=== PATIENT | female | born 1940 | race Caucasian/White ===

== ENCOUNTER 2018-06-29 17:07 | Observation (INO) | payer OTHER, MEDICAID, MEDICARE ==
[2018-06-29 18:12] LABS: ADD MAN DIFF? NO
[2018-06-29 18:17] LABS: BASOPHILS % 0.4 % (0.0-2.0); EOSINOPHILS # 0.2 10^3/ul (0.0-0.5); HEMATOCRIT 45.9 % (37.0-47.0); HEMOGLOBIN 14.9 g/dl (12.0-16.0); LYMPHOCYTES # 2.1 10^3/ul (0.8-2.9); LYMPHOCYTES % 23.7 % (15.0-51.0); MEAN CORPUSCULAR HEMOGLOBIN 29.8 pg (29.0-33.0); MEAN CORPUSCULAR HGB CONC 32.5 g/dl (32.0-37.0); MEAN CORPUSCULAR VOLUME 91.8 fl (82.0-101.0); MEAN PLATELET VOLUME 10.6 fl (7.4-10.4); MONOCYTE # 0.8 10^3/ul (0.3-0.9); MONOCYTES % 8.3 % (0.0-11.0); NEUTROPHIL # 5.9 10^3/ul (1.6-7.5); PLATELET COUNT 245 10^3/UL (140-415); RED CELL DISTRIBUTION WIDTH 13.7 % (11.5-14.5)
[2018-06-29] MEDS: ASPIRIN 81 MG TAB PO (18:26)
[2018-06-29] MEDS: NITROGLYCERIN 2% 1 GM OINT PKT TD (18:26)
[2018-06-29] MEDS: NITROGLYCERIN (SL) 0.4 MG TAB SL (18:27)
[2018-06-29 18:45] LABS: ANION GAP 9 (5-13); BLOOD UREA NITROGEN 19 mg/dl (7-20); CALCIUM 9.9 mg/dl (8.4-10.2); CARBON DIOXIDE 29 mmol/L (21-31); CHLORIDE 99 mmol/L (97-110); CREATININE 1.01 mg/dl (0.44-1.00); GLUCOSE 128 mg/dl (70-220); POTASSIUM 4.7 mmol/L (3.5-5.1); SODIUM 137 mmol/L (135-144)
[2018-06-29 18:57] LABS: TROPONIN-I < 0.012 ng/ml (0.000-0.120)
[2018-06-29] MEDS ORDERED: ONDANSETRON 4 MG INJ IV ×2 (19:30→22:00)
[2018-06-29] MEDS: ACETAMINOPHEN 325 MG TAB PO (21:07)
[2018-06-29] MEDS: morphine 4 MG/ML VIAL IV (21:42)
[2018-06-29] MEDS ORDERED: GLUCOSE GEL 15 GRAM TUBE PO ×2 (22:00)
[2018-06-29] MEDS ORDERED: NACL 0.9% 3 ML SYG IV (22:00)
[2018-06-29] MEDS ORDERED: ACETAMINOPHEN 325 MG TAB PO (22:00)
[2018-06-29] MEDS ORDERED: GLUCOSE GEL 15 GRAM TUBE BUCCAL (22:00)
[2018-06-29] MEDS ORDERED: NITROGLYCERIN (SL) 0.4 MG TAB SL (22:00)
[2018-06-29] MEDS ORDERED: morphine 2 MG INJ IV (22:00)
[2018-06-29] MEDS ORDERED: GLUCAGON 1 MG INJ IM (22:00)
[2018-06-29] MEDS ORDERED: HYDROCODONE/APAP (5/325) TAB PO (22:00)
[2018-06-29] MEDS ORDERED: DEXTROSE 50% 50 ML SYRINGE IV ×2 (22:00)
[2018-06-29] MEDS: ATORVASTATIN 80 MG TAB PO (23:00)
[2018-06-29] MEDS: HEPARIN 5,000 UNIT/1 ML VIAL SC (23:04)
[2018-06-30 01:16] LABS: CREATINE KINASE 132 IU/L (23-200)
[2018-06-30 01:28] LABS: CK-MB 1.35 ng/ml (0.0-2.4); TROPONIN-I < 0.012 ng/ml (0.000-0.120)
[2018-06-30] MEDS: ACCU-CHEK XX (02:00)
[2018-06-30] MEDS: HEPARIN 5,000 UNIT/1 ML VIAL SC ×2 (05:34→15:04)
[2018-06-30 06:51] LABS: ADD MAN DIFF? NO
[2018-06-30 06:54] LABS: BASOPHILS % 0.3 % (0.0-2.0); EOSINOPHILS # 0.2 10^3/ul (0.0-0.5); EOSINOPHILS % 1.4 % (0.0-7.0); HEMOGLOBIN 13.6 g/dl (12.0-16.0); LYMPHOCYTES # 1.4 10^3/ul (0.8-2.9); LYMPHOCYTES % 12.4 % (15.0-51.0); MEAN CORPUSCULAR HEMOGLOBIN 29.9 pg (29.0-33.0); MEAN CORPUSCULAR HGB CONC 32.4 g/dl (32.0-37.0); MEAN CORPUSCULAR VOLUME 92.3 fl (82.0-101.0); MEAN PLATELET VOLUME 11.3 fl (7.4-10.4); MONOCYTE # 0.9 10^3/ul (0.3-0.9); MONOCYTES % 7.8 % (0.0-11.0); NEUTROPHIL # 8.9 10^3/ul (1.6-7.5); NEUTROPHILS % 77.6 % (39.0-77.0); PLATELET COUNT 229 10^3/UL (140-415); RED BLOOD COUNT 4.55 10^6/ul (4.20-5.40); RED CELL DISTRIBUTION WIDTH 13.9 % (11.5-14.5)
[2018-06-30 06:54] LABS: WHITE BLOOD COUNT 11.5 10^3/ul (4.8-10.8)
[2018-06-30] MEDS: INSULIN ASPART [NOVOLOG] 3 ML PEN SC ×3 (07:55→17:21)
[2018-06-30 07:58] LABS: CREATINE KINASE 116 IU/L (23-200)
[2018-06-30 08:03] LABS: CK INDEX 1.4; CK-MB 1.61 ng/ml (0.0-2.4); TROPONIN-I < 0.012 ng/ml (0.000-0.120)
[2018-06-30] MEDS: LORATADINE 10 MG TAB PO (08:23)
[2018-06-30] MEDS: LOSARTAN 50 MG TAB PO (08:23)
[2018-06-30] MEDS: ASPIRIN (EC) 81 MG TAB PO (08:23)
[2018-06-30] MEDS: RANITIDINE 150 MG TAB PO (08:23)
[2018-06-30] MEDS: HYDROCHLOROTHIAZIDE 25 MG TAB PO (08:23)
[2018-06-30 08:25] LABS: ALANINE AMINOTRANSFERASE 31 IU/L (13-69); ALBUMIN 3.5 g/dl (3.3-4.9); ALBUMIN/GLOBULIN RATIO 1.34; ALKALINE PHOSPHATASE 131 IU/L (42-121); ANION GAP 7 (5-13); ASPARTATE AMINO TRANSFERASE 33 IU/L (15-46); BILIRUBIN,INDIRECT 0.4 mg/dl (0-1.1); BILIRUBIN,TOTAL 0.4 mg/dl (0.2-1.3); BLOOD UREA NITROGEN 18 mg/dl (7-20); CALCIUM 9.4 mg/dl (8.4-10.2); CARBON DIOXIDE 28 mmol/L (21-31); CHLORIDE 103 mmol/L (97-110); CHOL/HDL RATIO 2.1 RATIO; CHOLESTEROL 127 mg/dl (100-200); CREATININE 0.84 mg/dl (0.44-1.00); GLUCOSE 111 mg/dl (70-220); HDL CHOLESTEROL 58 mg/dl (33-92); LDL CHOLESTEROL,CALCULATED 54 mg/dl; SODIUM 138 mmol/L (135-144); TOTAL PROTEIN 6.1 g/dl (6.1-8.1); TRIGLYCERIDES 73 mg/dl (0-149)
[2018-06-30] MEDS: TOLTERODINE (SR) 4 MG CAP PO (09:12)
[2018-06-30 09:51] LABS: HEMOGLOBIN A1C 5.6 % (0-5.9)
== END 2018-06-30 18:50 | disposition home or self-care (01) ==
LOC: E/R 17:07 → TEL 19:08
DX: R07.89 Other chest pain (principal); I10 Essential (primary) hypertension; E11.9 Type 2 diabetes mellitus without complications; Z79.82 Long term (current) use of aspirin
CPT/HCPCS: 71045; 80048; 80053; 80061; 82550; 82553; 82962; 83036; 83735; 84443; 84484; 85025; 93005; 93306; 99285-25; G0378